=== PATIENT | male | born 1975 | race African-American/Black ===

== ENCOUNTER 2020-07-19 19:03 | Emergency (ER) | payer OTHER ==
[~2020-07-19] VITALS: Ht 195.6 cm; Wt 93.0 kg
[2020-07-19] MEDS ORDERED: ACETAMINOPHEN 325MG TABLET PO STA (19:57)
[2020-07-19] MEDS ORDERED: MAGNESIUM/ALUMINUM HYDROXIDE/SIMETHICONE 30ML UDC PO STA (19:57)
[2020-07-19] MEDS ORDERED: ONDANSETRON HCL 4MG/2ML INJ IV STA (19:57)
[2020-07-19] MEDS ORDERED: VISCOUS LIDOCAINE 2% 15 ML UDC PO STA (19:57)
[2020-07-19] MEDS ORDERED: DIAZEPAM 5 MG/ML 2ML CPJ IV ONE (20:00)
[2020-07-19] MEDS ORDERED: SODIUM CHLORIDE 0.9% 1,000 ML IV ONE (20:00)
[2020-07-19 20:28] LABS: BASOPHILS % 0.5 % (0.0-2.0); HEMATOCRIT. 43.6 % (42.0-52.0); HEMOGLOBIN. 14.6 g/dL (14.0-18.0); LYMPHOCYTES % 35.9 % (20.0-50.0); MEAN CORPUSCULAR HEMOGLOBIN 31.1 pg (28.0-32.0); MEAN CORPUSCULAR VOLUME 92.6 fL (80.0-94.0); MEAN PLATELET VOLUME 8.4 fl (7.4-10.4); MONOCYTES % 12.7 % (2.0-8.0); NEUTROPHILS % 49.9 % (40.0-76.0); PLATELET 152 x1000/uL (130-400); RED CELL DISTRIBUTION WIDTH 14.7 % (11.6-14.6)
[2020-07-19 20:32] LABS: CHLORIDE 102 mEq/L (98-107)
[2020-07-19 20:35] LABS: PROTHROMBIN TIME 10.6 sec (9.6-11.0)
[2020-07-19 20:36] LABS: ETHANOL BLOOD < 10 mg/dL
[2020-07-19 22:36] LABS: CLARITY URINE CLEAR (CLEAR); COLOR URINE YELLOW (YELLOW); KETONES URINE TRACE (NEGATIVE); LEUKOCYTE ESTERASE URINE NEGATIVE (NEGATIVE); NITRITE URINE NEGATIVE (NEGATIVE); OCCULT BLOOD URINE NEGATIVE (NEGATIVE); PH URINE >=9.0 (4.5-8.0); PROTEIN URINE 1+ (NEGATIVE); SPECIFIC GRAVITY URINE 1.025 (1.005-1.030)
[2020-07-19] MEDS ORDERED: L25 MT ×2 (22:42→22:43)
[2020-07-19 23:37] VITALS: BP 142/79
== END 2020-07-19 23:37 | disposition home or self-care (01) ==
LOC: ER 19:03
DX: F10.239 Alcohol dependence with withdrawal, unspecified (principal); Y90.0 Blood alcohol level of less than 20 mg/100 ml; I10 Essential (primary) hypertension
CPT/HCPCS: 36415; 71045; 80053; 80320; 81003; 83690; 85025; 85610; 93005; 96361; 96374; 96375; 99285; J2405; J3360; J7030; G0480